=== PATIENT | male | born 1985 | race Asian ===

== ENCOUNTER 2018-01-05 12:39 | Emergency (ER) | payer SELFPAY ==
--- NOTE | 2018-01-05 13:06 | NUR ---
NO ANWER IN ER LOBBY
--- NOTE | 2018-01-05 13:54 | NUR ---
PATIENT CALLED FROM LOBBY NO ANSWER PATIENT IS CONSIDERED LWBS.
== END 2018-01-05 13:54 | disposition left against medical advice (07) ==
LOC: MED 12:39
DX: M54.2 Cervicalgia (principal); Z53.21 Procedure and treatment not carried out due to patient leaving prior to being seen by health care provider